=== PATIENT | male | born 2000 | race Caucasian/White ===

== ENCOUNTER 2023-10-19 21:43 | Emergency (ER) | payer OTHER ==
[~2023-10-19] VITALS: Ht 182.9 cm; Wt 77.1 kg
[2023-10-19 21:45] VITALS: BP 122/85
== END 2023-10-19 23:55 | disposition home or self-care (01) ==
LOC: ER 21:43
DX: K52.9 Noninfective gastroenteritis and colitis, unspecified (principal)